=== PATIENT | female | born 1965 | race Caucasian/White ===

== ENCOUNTER 2021-10-26 18:02 | Emergency (ER) | payer OTHER ==
[2021-10-26] MEDS ORDERED: BENZONATATE200 MG PO (20:04)
[2021-10-26 20:47] LABS: CORONAVIRUS 2019 SARS-COV-2 NEGATIVE (NEGATIVE); INFLUENZA A NAA NEGATIVE (NEGATIVE)
== END 2021-10-26 20:08 | disposition home or self-care (01) ==
LOC: FER 18:02
PROVIDERS: Physician Assistant Medical
DX: J06.9 Acute upper respiratory infection, unspecified (principal); I10 Essential (primary) hypertension; K21.9 Gastro-esophageal reflux disease without esophagitis; F17.200 Nicotine dependence, unspecified, uncomplicated; Z20.822 Contact with and (suspected) exposure to COVID-19; Z79.899 Other long term (current) drug therapy
CPT/HCPCS: 99283; U0002

== ENCOUNTER 2022-05-26 11:19 | Emergency (ER) | payer OTHER ==
[~2022-05-26 11:19] MED LIST: BENZONATATE200 MG PO
[2022-05-26 12:10] LABS: BASOPHIL 0.7 % (0-2); EOSINOPHIL 1.3 % (0-5); HCT 42.5 % (37.0-47.0); HGB 14.4 g/dl (12.5-16.0); MCH 31.3 pg (25.0-31.0); MCHC 33.9 g/dL (32.0-36.0); MCV 92.4 fL (78.0-100.0); MONOCYTE 10.7 % (0-12); MPV 11.2 fL (6.0-9.5); NRBC 0; PLT 210 K/uL (150-400); RDW 12.1 % (11.5-14.0); WBC 7.2 K/uL (4.0-10.5)
[2022-05-26 12:23] LABS: ALBUMIN 3.3 g/dL (3.4-5.0); BILIRUBIN - TOTAL 0.3 mg/dL (0.2-1.0); BUN/CREAT RATIO (CALC) 14.1 RATIO; CREATININE 0.92 mg/dL (0.51-0.95); GLOBULIN (CALCULATION) 3.7 g/dL; POTASSIUM 3.4 mmol/L (3.5-5.1)
[2022-05-26 12:24] LABS: CORONAVIRUS 2019 SARS-COV-2 NEGATIVE (NEGATIVE); INFLUENZA A NAA NEGATIVE (NEGATIVE)
== END 2022-05-26 14:51 | disposition home or self-care (01) ==
LOC: FER 11:19
PROVIDERS: Emergency Medicine
DX: B34.9 Viral infection, unspecified (principal); I10 Essential (primary) hypertension; K21.9 Gastro-esophageal reflux disease without esophagitis; Z20.822 Contact with and (suspected) exposure to COVID-19; Z28.310 Unvaccinated for COVID-19; Z79.899 Other long term (current) drug therapy
CPT/HCPCS: 36415; 80053; 83690; 85025; J2405; J7030; U0002